=== PATIENT | male | born 1970 | race Caucasian/White ===

== ENCOUNTER 2025-04-27 14:17 | Outpatient (AMB) | payer MEDICARE, MEDICAID, SELFPAY ==
--- OUTSIDE RECORDS SUMMARY | 2025-04-27 09:30 | XMS_ITS | Encounter Summary ---
Author Organization [facility] Address [address] [place] [address] Care Team Providers Care Telesales Specialist Name Role Phone Elieser Lott MD Primary Care Provider [phone] Reason for Visit * Reason Comments Shortness of Breath F/u SOB Encounter Details Date Type Department Care Team (Late st Contact Info) Description 04/27/2025 9:30 AM EDT Office Visit [facility] [address] [facility] [address] [place] [phone] Mae Munoz MD [address] [address] Seizure disorder (CMS/HCC V24, CMS/HCC V28) (Primary Dx); Cerebrovascular accident (CVA) due to other mechanism (CMS/HCC V24, CMS/HCC V28); Hypoxemia Social History Tobacco Use Types Packs/Day Years Used Date Smoking Tobacco: Never Smokeless Tobacco: Never Alcohol Use Standard Drinks/Week Comments No 0 (1 standard drink = 0.6 oz pur e alcohol) Interpersonal Safety Answer Date Record ed Physical Abuse 01/12/2025 Verbal Abuse 01/12/2025 Sex and Gender Information Value Date Recorded Sex Assigned at Male 01/11/2025 2:22 PM EDT Legal Sex Male 6:24 PM EST Gender Identity Male 01/11/2025 2:22 PM EDT Sexual Orientation Straight 01/11/2025 2: 22 PM EDT documented as of this encounter Last Filed Vital Signs Vital Sign Reading Time Taken Comments Blood Pressure 118/68 04/27/2025 9:37 AM EDT Pulse 84 04/27/2025 9:37 AM EDT Temperature 36.7 C (98.1 F) 04/27/2025 9:37 AM EDT Respiratory Rate 20 04/27/2025 9:37 AM EDT Oxygen Saturation 95% 04/27/2025 9:37 AM EDT Inhaled Oxygen Concentration - - Weight - - Height - - Body Mass Index - - documented in this encounter Progress Notes * Mae Munoz MD - 04/27/2025 9:30 AM EDT ADULT PULMONARY CONSULT CHIEF COMPLAINT or REASON FOR CONSULTATION: Shortness of Breath (F/u SOB) HISTORY OF PRESENT ILLNESS: Konstantin Ngo is a 54 y.o. years old, male with a history of CVA, restrictive lung disease and hypoxemia. The patient resides at [facility] and was accompanied by the staff. He uses oxygen nightly and no longer uses oxygen during the day. They check his oxygen level and it has been over 90% without oxygen when awake. The patient has no recent exacerbations. ALLERGIES: Allergies Allergen Reactions Guaifenesin Other Hydantoins Iodinated Contrast Media Other Sneezing, ACTIVE MEDICATIONS: Outpatient Medications Marked as Taking for the 04/27/25 encounter (Office Visit) with Mae Munoz MD Medication Sig Dispense Refill acetaminophen (TYLENOL) 325 mg tablet Take 2 tablets (650 mg total) by mouth every 6 (six) hours ifneeded for mild pain or fever - temperature GREATER than 38 C (100.4 F). 90 tablet 1 carboxymethylcellulose (REFRESH PLUS) 0.5 % ophthalmic solution Place 2 Drops into both eyes 3 times daily as needed (dry eyes). cholecalciferol (VITAMIN D-3) 25 mcg (1,000 unit) tablet Take 1 tablet (1,000 Units total) by mouth1 (one) time each day. 90 tablet 1 citalopram (CeleXA) 20 mg tablet Take 1 tablet (20 mg total) by mouth 1 (one) time each day. clonazePAM (KlonoPIN) 1 mg tablet Take 1 tablet (1 mg total) by mouth 1 (one) time each day. cloNIDine (CATAPRES) 0.1 mg tablet Take 1 tablet (0.1 mg total) by mouth 1 (one) time each day. erythromycin 5 mg/gram (0.5 %) ophthalmic ointment Apply to both eyes every 8 (eight) hours. gabapentin (NEURONTIN) 800 mg tablet Take 1 tablet (800 mg total) by mouth 3 (three) times a day. 270 each 1 loratadine (CLARITIN) 10 mg tablet Take 1 tablet (10 mg total) by mouth 1 (one) time each day. 90 each 1 multivit-min/iron fum/folic ac (THERA-M ORAL) TAKE 1 TABLET BY MOUTH DAILY EVERY MORNING multivitamin minerals-iron (Thera-M) 9 mg iron-400 mcg tablet Take 1 tablet by mouth 1 (one) time each day in the morning. 30 tablet 5 NON FORMULARY 1 Device by Does not apply route as needed (for gait assistance). ofloxacin (OCUFLOX) 0.3 % ophthalmic solution OLANZapine (ZyPREXA) 15 mg tablet Take 1 Tablet by mouth at bedtime. thiamine 100 mg tablet TAKE 1 TABLET BY MOUTH DAILY EVERY MORNING 30 tablet 5 topiramate (TOPAMAX) 100 mg tablet topiramate (TOPAMAX) 100 mg tablet Take 1 tablet (100 mg total) by mouth 2 (two) times a day. 180 each 1 topiramate (TOPAMAX) 50 mg tablet Take 1 tablet (50 mg total) by mouth 2 (two) times a day. 180 each 1 PROVIDER ATTESTS THAT THE MEDICATION LIST WAS OBTAINED, REVIEWED AND UPDATED. REVIEW OF SYSTEMS: GENERAL: No wt lost or fever RESPIRATORY: + cough, wheezing and dyspnea CARDIOVASCULAR: No chest pain, leg swelling or palpitations GI: No abdominal discomfort, MUSCULOSKELETAL: +backpain ENDOCRINE: no DM NEURO: No focal weakness : Psych: + depression and depression PAST MEDICAL HISTORY: Patient Active Problem List Diagnosis Date Noted Infrarenal abdominal aortic aneurysm (AAA) without rupture ([facility] V24) 03/29/2025 Abnormal posture 03/24/2025 Anxiety 03/24/2025 Benign prostatic hyperplasia 03/24/2025 Disorder of left cornea 03/24/2025 Dysphagia 03/24/2025 Hemiplegia ([facility] V24, [facility] V28) 03/24/2025 Impaired cognition 03/24/2025 Mood disorder ([facility] V24) 03/24/2025 Muscle weakness 03/24/2025 Seizure ([facility] V24, [facility] V28) 03/24/2025 Seizure after head injury ([facility] V24, [facility] V28) 03/24/2025 Seizure disorder ([facility] V24, [facility] V28) 03/24/2025 Gait instability 04/03/2017 CVA (cerebral vascular accident) ([facility] V24, [facility] V28) 03/18/2017 Generalized anxiety disorder 11/26/2015 Major depression 11/26/2015 Mental developmental delay 11/26/2015 Tourette disease 11/26/2015 Past Surgical History: Procedure Laterality Date COLONOSCOPY 01/12/2025 TA x1, normal random colon biopsy (5 yr) [address] La EYE SURGERY PROCEDURE: HISTORICAL EYE SURGERY NECK SURGERY 2023 PROCEDURE: HISTORICAL NECK SURGERY; COMMENT: Epidermoid cyst FAMILY HISTORY: No family history on file. OCCUPATION OR OCCUPATION EXPOSURE: SOCIAL HISTORY Social History Socioeconomic History Marital status: Single Spouse name: Not on file Number of children: Not on file Years of education: Not on file Highest education level: Not on file Occupational History Not on file Tobacco Use Smoking status: Never Smokeless tobacco: Never Substance and Sexual Activity Alcohol use: No Drug use: No Sexual activity: Not on file Other Topics Concern Not on file Social History Narrative Not on file IMMUNIZATION: Immunization History Administered Date(s) Administered COVID-19 (Pfizer/Comirnaty) 12yo and older 10/13/2023, 08/22/2024 Influenza Quadravalent, MDCK, 0.5ml, preservative free (Flucelvax) 6mo and older 08/10/2019, 07/27/2020, 08/07/2021, 06/23/2023 Influenza Quadravalent, MDCK, 0.5ml, with preservative (Flucelvax) 6mo and older 08/05/2017, 07/01/2018 Influenza trivalent, 0.5mL, preservative free (Fluarix; FluLaval; Fluzone) ages 6mo and older (Afluria) 3 years and older 08/22/2024 Influenza trivalent, with preservative (Fluzone; Afluria) 6mo and older 10/01/2016, 07/01/2018, 08/10/2019, 07/27/2020, 08/07/2021 Moderna SARS-CoV-2 COVID-19, mRNA, LNP-S, preservative free 11/07/2020, 12/05/2020 Pneumococcal conjugate 13 valent (Prevnar 13, PCV13) 2mo and older 05/10/2019 Pneumococcal polysaccharide 23 valent (Pneumovax 23) 2yo and older 10/26/2017 Tdap Tetanus diptheria acellular pertussis (Boostrix; Adacel) 7yo and older 04/03/2016, 03/13/2021 Varicella live (Varivax) 12mo and older 10/19/2018, 11/16/2018 PHYSICAL EXAM: Visit Vitals BP 118/68 (BP Location: Left arm, Patient Position: Sitting, BP Cuff Size: Adult) Pulse 84 Temp 36.7 ??C (98.1 ??F) (Temporal) Resp 20 SpO2 95% Smoking Status Never APPEARANCE: Alert and in no acute distress. Did not answer questions, pt in wheelchair EYES: Conjunctiva and sclera normal. MOUTH/THROAT: no erythema or exudates. Mallampati class 2 NECK: Neck supple, thyroid symmetric and of normal size. HEART: RRR with normal S1 and S2, no murmurs LUNG: CTA b/l, no wheezing or bronchial bs ABDOMEN: Bowel sounds normoactive, soft, non-tender EXTREMITIES: no clubbing, cyanosis, or edema. NEURO: + facial assymetry with left side weakness- did not speak Derm: no rash DIAGNOSTIC DATA: 10/2024 Overnight oximetry, desaturation most of the night ASSESSMENT: ICD-10-CM ICD-9-CM 1. Seizure disorder (CMS/[facility] V24, CMS/[facility] V28) G40.909 345.90 2. Cerebrovascular accident (CVA) due to other mechanism (CMS/HCC V24, CMS/HCC V28) I63.89 434.91 3. Hypoxemia R09.02 799.02 PLAN: O2 sat 95% on ra, overnight showed desaturation. Will cont o2 qhs. These oxygen would decrease the risks of continuing seizures. The patient has significant restrictive lung disease based on CVA. PFTcannot be performed due to his cognitive status. - Follow up with Elieser Lott MD for the other co-morbilities. - I spend 31 Minutes on this visit. The patient was educated about his problems, where assessment and plan was reviewed and explained, All questions were answered. This includes: Preparing to see the patient, obtaining and/or reviewing separately obtained history, performing a medically appropriate exam, ordering medications, tests, or procedures, documenting clinical information in the electronic health record, and independently interpreting results. RETURN TO THE NEXT VISIT: Based on physical exam, symptomatology, tests requested and baseline pulmonary evaluation/disease, I instructed the patient to come back to see me in 6 mths for reevaluation after the test has been done or earlier if the patient needed. Thanks Elieser Lott MD for allowing me to have the opportunity to assist in the care of this patient. documented in this encounter Plan of Treatment Upcoming Encounters Date Type Department Care Team (Latest Contact Info) Description 05/08/2025 12:45 PM EDT Appointment [facility] Endoscopy [address] [place] [phone] Ramirez La MD [address] [address] 05/09/2025 10:45 AM EDT Hospital Encounter [facility] Main OR [address] [place] [phone] Juma Hutton MD [address] [place] [address] 05/09/2025 10:45 AM EDT - 05/09/2025 12:15 PM EDT Surgery [facility] OR [address] [place] [phone] Juma Hutton MD [address] [place] [address] CYSTOSCOPY W/URETEROSCOPY LASER LITHOTRIPSY & STENT - LEFT [17850 (CPT )] 09/11/2025 11:30 AM EST Office Visit Vascular Surgery - [place] [address] [place] [phone] Erin Reynaga PA [address] [facility] [address] [place] [address] 09/21/2025 7:45 AM EST Ancillary Procedure [facility] - [facility] [address] [facility] [address] [place] [address] Scheduled Procedures Name Priority Associated Diagnoses Date/Ti me CYSTOSCOPY URETEROSCOPY Unspecified hydronephrosis 05/09/2025 10:45 AM EDT documented as of this encounter Visit Diagnoses Diagnosis Seizure disorder (CMS/HCC V24, CMS/[facility] V28)- Primary Unspecified epilepsy without mention of intractable epilepsy Cerebrovascular accident (CVA) due to other mechanism (CMS/HCC V24, CMS/HCC V28) Hypoxemia Unspecified hydronephrosis documented in this encounter Care Teams Telesales Specialist Relationship Specialty Start Date End Date Elieser Lott MD [address] [place] [phone] PCP - General Internal Medicine 10/15/15 documented as of this encounter
--- OUTSIDE RECORDS SUMMARY | 2025-04-27 14:21 | XMS_ITS ---
Author Name [facility] Organization Unknown Care Team Organization Name Specialty Phone Email Start Date End Da te [facility] Elieser Lott Primary Care 12/10/2022 05/23/20 [facility] Cinthia Lovelace APRN Primary Care 08/12/2022 05/23/2024
--- OUTSIDE RECORDS SUMMARY | 2025-04-27 14:21 | XMS_ITS | Patient Health Record ---
Author Organization [facility] Address [address] [address] Care Team Providers Care [employer] Volleyball Coach Name Role Phone VITOR ALCANTARA Primary Care Provider Chris Hernandez Unavailable [phone] Allergies Allergen (clinical drug ingredient) Drug/Non Drug Allergy documented on EMR Reaction Allergy Type Onset Date Status Hydantoin derivative (substance) Hydantoins (uncoded) Unknown Allergy Active Reason For Referral No Information Medications Medication SIG (Take, Route, Frequency, Duration) Notes Start Date End Date Status Tylenol 8 Hour 650 MG 2 tablets as neede d Orally every 8 hrs Active OLANZapine 15 MG 1 tablet Orally At bedtime Active Natural Balance Tears - Ophthalmic Active Citalopram Hydrobromide 20 MG 1 tablet Orally Once a day Active SF 5000 Plus 1.1 % Dental BID Active Topiramate 50 MG 1 tablet Orally Twic e a day Active Gabapentin 600 MG 1 tablet Orally Thre e times a day Active Calcium + D3 600-200 MG-UNIT 1 tablet with a meal Orally BID Active Topiramate 100 MG 1 tablet Orally Twic e a day Active Social History Tobacco Use: Social History Observation Description Date Details (start date - stop date) Never Smoker NA - NA Tobacco Use/Smoking Question Answer Notes Are you a nonsmoker Section Notes: Level of Education: Problems Problem Type SNOMED Code ICD Code Onset Dates Problem Status W/U Status Risk Notes Problem Tourette's disorder (9458890) Tourette's disorder (F95.2) Active confirmed Problem Abnormal posture (64884200) Abnormal posture (R29.3) Active confirmed Problem Anxiety (40286036) Anxiety (F41.9) Active confirmed Problem Mood disorder (52619193) Mood disorder (F39) Active confirmed Problem Impaired cognition (finding) (302061643) Cognitive deficits (R41.89) Active confirmed Problem Depression (098116064) Depression (F32.9) Active confirmed Problem Traumatic brain injury (918136816) TBI (traumatic brain injury) (S06.9X9A) Active confirmed Problem Seizure after head injury (213936219) Seizure after head injury (R56.1) Active confirmed Problem Muscle weakness (31131971) Muscle weakness (M62.81) Active confirmed Problem Convulsion (05739202) Convulsions (R56.9) Active confirmed Problem Dysphagia (21033751) Dysphagia (R13.10) Active confirmed Problem Hemiplegia (46334818) Hemiplegia (G81.90) Active confirmed Plan Of Treatment No Information Insurance Providers Payer Name Payer Address Payer Phone Subscriber Number Group Number Insured Name Patient Relationship to Insured Coverage Start Date Coverage End Date MEDICARE [address] [place], [place] [id number] [phone] [id number] NATHAN RIZZO Self - patient is the insured [facility] [address] [place] [address] [phone] [id number] NATHAN RIZZO Self - patient is the insured Medical (General) History Medical History History ICD Code Muscle weakness Cognitive deficits Abnormal posture Mood disorder Dysphagia Convulsions Hemiplegia Depression Tourette's disorder.
--- NOTE | 2025-04-27 14:34 | MHC.OFFVIS ---
Vital Signs 04/27/25 14:37 BP 102/64 Blood Pressure Location Rt brachial Position Sitting Pulse 67 Pulse Source Pulse Oximeter Pulse Oximetry (%) 94 Oxygen Delivery Method Room Air Intake Visit Reasons: E-MARIONETTE PERFORMER: Parkinson's Step Finisher Required: No Accompanied by: Self / Same As Patient Allergies guaifenesin Allergy (Verified 04/27/25 14:35) Unknown Hydantoins Allergy (Verified 04/27/25 14:35) Unknown HPI Comments Details: 54y/o male comes here for evaluation of possible parkinsons . He has developmental mental disorder h/o left hemiparesis , mood disorder , dysarthria . He is accompanied by a staff from [facility] who did not have any information. He has tremors in right hand - ? unclear of the duration. He walks with his PT . No furtehr history was obtainable [facility] Medical History (Updated 04/27/25 @ 14:53 by Liudmila Zapata MD) Pill rolling tremors Tourette disease Developmental mental disorder Depression JAYDE (generalized anxiety disorder) CVA (cerebral vascular accident) Gait instability Surgical History (Updated 04/27/25 @ 14:43 by Phuong Mix CMA) Hx of neck surgery Hx of eye surgery Physical Exam Vital Signs: Last Vital Signs Pulse 67 04/27/25 14:37 BP 102/64 04/27/25 14:37 Pulse Ox 94 04/27/25 14:37 Oxygen Delivery Method Room Air 04/27/25 14:37 Const Orientation/consciousness: oriented to person Neuro Other: Right hand rest tremors- intermittent 1 + cogwheel rigidity right UE Left facial paresis - left ptosis nystabgmus Left UE 3/5 LE 3/5 Gait - not evaluated General: oriented to person and Unable to assess gait Cranial nerves: Yes Midline tongue present Cognition (Neuro): abnormal cognition Gait exam (Neuro): Unable to assess gait Deep tendon reflexes (DTR's): Right triceps reflex intensity grade: 2+, Left triceps reflex intensity grade: 2+, Rt Biceps (C5, C6): 2+, Left biceps reflex intensity grade: 2+, Right brachioradialis reflex intensity grade: 2+, Left brachioradialis reflex intensity grade: 2+, Right patellar reflex intensity grade: 2+, Left patellar reflex intensity grade: 3+, Right ankle reflex intensity grade: 2+ and Left ankle reflex intensity grade: 3+ Coordination: [id number] test normal Assessment & Plan Assessment & Plan (1) 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 Coding Level of Care Code New Pt Level 4 (37430) Diagnoses Pill rolling tremors R25.1
[2025-04-27 14:37] VITALS: BP 102/64; PULSE 67; O2SAT 94
== END 2025-04-27 15:06 | disposition home or self-care (01) ==
PROVIDERS: PCP Nurse Practitioner Family; Visit Provider Psychiatry & Neurology Neurology
DX: R25.1 Tremor, unspecified (principal)
CPT/HCPCS: 99204

== ENCOUNTER → 2025-04-27 14:17 | Outpatient (BNVA) | payer MEDICARE, MEDICAID, SELFPAY | PROVIDERS: PCP Nurse Practitioner Family; Visit Provider Psychiatry & Neurology Neurology | DX: R25.1 Tremor, unspecified (principal); I69.354 Hemiplegia and hemiparesis following cerebral infarction affecting left non-dominant side | CPT/HCPCS: 99202 ==